=== PATIENT | female | born 1950 | race Caucasian/White ===

== ENCOUNTER 2017-07-08 14:39 | Emergency (ER) | payer OTHER ==
[~2017-07-08] VITALS: Ht 157.5 cm; Wt 71.7 kg
[2017-07-08 14:42] VITALS: Ht 157.5 cm; Wt 71.7 kg
[2017-07-08] MEDS ORDERED: IBUP-1542 PO (16:24)
--- NOTE | 2017-07-08 16:29 | RADRPT ---
PROCEDURE: XR Finger. CLINICAL INDICATION: Right fifth finger pain. Trauma. TECHNIQUE: Three views of the right fifth digit. COMPARISON: None. FINDINGS: A nondisplaced fracture of the base of the fifth proximal phalanx is seen with soft tissue swelling at the fracture site. No other fracture is seen. No dislocation is seen. No radiopaque foreign body is identified. IMPRESSION: Nondisplaced fracture of the fifth proximal phalanx. RPTAT: [facility]PN[facility] Physician Ajay Date Time Electronically viewed and signed by Physician Ajay on 07/08/2017 16:29 /
--- NOTE | 2017-07-08 16:35 | ERD ---
ER Documentation Chief Complaint Chief Complaint rt hand pain s/p trip and fall today HPI This 67-year-old female presents with bruising and pain in her right fifth digit after tripping and falling on her outstretched hand early this morning. She has restricted range of motion due to pain but no weakness. She has no bleeding or laceration. She denies head injury, neck pain, additional symptoms due to her fall this morning. ROS All systems reviewed and are negative except as per history of present illness. Medications Home Meds Active Scripts Ibuprofen* (Motrin*) 600 Mg Tab, 600 MG PO Q6, #15 TAB Prov:JAYLAN APONTE MD 07/08/17 Physical Exam Vitals Vital Signs Date Time Temp Pulse Resp B/P Pulse Ox O2 Delivery O2 Flow Rate FiO2 07/08/17 14:42 98.7 76 18 186/78 99 Physical Exam Const: [] Alert, [id number]. Head: Atraumatic Eyes: Normal Conjunctiva ENT: Normal External Ears, Nose and Mouth. Neck: Full range of motion..~ No meningismus. Resp: Clear to auscultation bilaterally Cardio: Regular rate and rhythm, no murmurs Abd: Soft, non tender, non distended. Normal bowel sounds Skin: No petechiae or rashes Back: No midline or flank tenderness Ext: No cyanosis, or edema. Bruising and tenderness primarily in the proximal right fifth digit. No appreciable tendon or neurologic deficits. No warmth or erythema. Neur: Awake and alert Psych: Normal Mood and Affect Procedures/MDM X-ray right pinky finger 2V Interpreted by me: Bones: Nondisplaced fracture of the base of the right fifth digit. Joints: [No dislocation] Foreign body: [None]. Impression-nondisplaced fracture of the right fifth digit proximal shaft. Patient was placed in right fifth digit middle splint was neurovascular intact after splint. Patient has signs and symptoms right fifth digit fracture without evidence of dislocation, tendon or neurologic deficits, she was discharged home with orthopedic follow-up within next week. She may need authorization from her primary care doctor. She should return sooner for fevers , redness, new worsening symptoms. Departure Diagnosis: Primary Impression: Finger fracture, left Encounter type: initial encounter Finger: little finger Fracture type: closed Phalanx: unspecified phalanx Fracture alignment: nondisplaced Qualified Code: S62.607A - Closed nondisplaced fracture of phalanx of left little finger, unspecified phalanx, initial encounter Condition: Stable Patient Instructions: Finger and Toe Fractures (Broken Finger or Toe) Referrals: JOAN DUFF MD,TANO WREN MD Additional Instructions: tiene fractura. Va al abraham doctor/ specialista para mas evaluacon en el proximo semana. posiblemente necesita autorizado de abraham doctor primario para specialista. Regresa para fiebre, o mas o nueva simptomas. JAYLAN APONTE MD Jul 08, 2017 16:35
== END 2017-07-08 17:00 | disposition home or self-care (01) ==
LOC: FTE 14:39
DX: S62.646A Nondisplaced fracture of proximal phalanx of right little finger, initial encounter for closed fracture (principal); W01.0XXA Fall on same level from slipping, tripping and stumbling without subsequent striking against object, initial encounter; Y92.9 Unspecified place or not applicable
CPT/HCPCS: 73140